=== PATIENT | male | born 1965 | race Caucasian/White ===

== ENCOUNTER 2016-10-10 19:08 | Emergency (ER) | payer MEDICARE, OTHER ==
[~2016-10-10] VITALS: Ht 167.6 cm; Wt 68.0 kg
[~2016-10-10 19:08] MED LIST: BP MEDS; HUMALOG LISPRO SQ; INSULIN SC; MORP60TA9 PO; NPH SQ; RENAGEL PO; SIMV40TA3 PO
[2016-10-10 19:12] VITALS: Ht 167.6 cm; Wt 68.0 kg
[2016-10-10 19:40] LABS: ADD SCAN DIFF NO
[2016-10-10 19:41] LABS: BASOPHIL # 0.1 10^3/ul (0.0-0.1); EOSINOPHILS # 0.2 10^3/ul (0.0-0.5); EOSINOPHILS % 3.4 % (0.0-7.0); HEMATOCRIT 41.9 % (42.0-52.0); LYMPHOCYTES # 1.2 10^3/ul (0.8-2.9); LYMPHOCYTES % 16.8 % (15.0-51.0); MEAN CORPUSCULAR HEMOGLOBIN 29.6 pg (29.0-33.0); MEAN CORPUSCULAR VOLUME 95.4 fl (82.0-101.0); MEAN PLATELET VOLUME 11.1 fl (7.4-10.4); MONOCYTE # 0.6 10^3/ul (0.3-0.9); NEUTROPHIL # 4.8 10^3/ul (1.6-7.5); NEUTROPHILS % 69.5 % (39.0-77.0); PLATELET COUNT 204 10^3/UL (140-415); RED BLOOD COUNT 4.39 10^6/ul (4.70-6.10); WHITE BLOOD COUNT 6.9 10^3/ul (4.8-10.8)
[2016-10-10] MEDS ORDERED: hydrALAzine 20 MG INJ IV ONE (20:00)
[2016-10-10 20:12] LABS: ALBUMIN 5.5 g/dl (3.3-4.9); ALBUMIN/GLOBULIN RATIO 1.41; CALCIUM 9.8 mg/dl (8.4-10.2); CREATININE 10.71 mg/dl (0.61-1.24); TOTAL PROTEIN 9.4 g/dl (6.1-8.1)
[2016-10-10 20:23] LABS: POTASSIUM 5.6 mmol/L (3.5-5.1)
[2016-10-10 21:06] VITALS: BP 138/75; PULSE 104; RESP 18
[2016-10-10] MEDS ORDERED: LORAZEPAM 0.5 MG TAB PO ONE (21:30)
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
== END 2016-10-10 21:42 | disposition home or self-care (01) ==
LOC: E/R 19:08
DX: E11.649 Type 2 diabetes mellitus with hypoglycemia without coma (principal); I12.0 Hypertensive chronic kidney disease with stage 5 chronic kidney disease or end stage renal disease; N18.6 End stage renal disease; Z99.2 Dependence on renal dialysis
CPT/HCPCS: 36415; 80053; 82962; 83690; 85025; 96374; 99284; J0360; 93005

== ENCOUNTER 2018-12-13 16:11 | Emergency (ER) | payer MEDICARE, OTHER ==
[~2018-12-13] VITALS: Ht 167.6 cm; Wt 68.2 kg
[~2018-12-13 16:11] MED LIST changes: +SIMV40TA19 PO; -SIMV40TA3 PO
[2018-12-13 16:14] VITALS: Ht 167.6 cm; Wt 68.2 kg
[2018-12-13 18:43] VITALS: BP 186/84; PULSE 75; RESP 18
== END 2018-12-13 18:44 | disposition home or self-care (01) ==
LOC: E/R 16:11
DX: E11.649 Type 2 diabetes mellitus with hypoglycemia without coma (principal); E11.22 Type 2 diabetes mellitus with diabetic chronic kidney disease; N18.6 End stage renal disease; I12.0 Hypertensive chronic kidney disease with stage 5 chronic kidney disease or end stage renal disease; Z79.4 Long term (current) use of insulin; Z99.2 Dependence on renal dialysis
CPT/HCPCS: 36415; 80053; 82962; 83690; 84484; 85025